=== PATIENT | female | born 1990 | race Caucasian/White ===

== ENCOUNTER 2025-04-05 10:25 | Emergency (ER) | payer OTHER, BC | END 2025-04-05 12:20 | disposition home or self-care (01) | LOC: LL.ED 10:25 | DX: S99.911A Unspecified injury of right ankle, initial encounter (principal); F17.200 Nicotine dependence, unspecified, uncomplicated; Z79.899 Other long term (current) drug therapy; W22.8XXA Striking against or struck by other objects, initial encounter | CPT/HCPCS: 73610; 73630; 99283; A9270 ==